=== PATIENT | female | born 1945 | race Two or more races ===

== ENCOUNTER 2018-10-03 09:07 | Day surgery (SDC) | payer MEDICARE, OTHER ==
[~2018-10-03] VITALS: Ht 157.5 cm; Wt 82.6 kg
[2018-10-03 09:30] VITALS: BP 135/66
[2018-10-03] MEDS ORDERED: ANCEF 1 GM/50 ML D5W IV ONE ×2 (10:00)
--- NOTE | 2018-10-03 10:30 | NUR ---
IV STARTED LT. WRIST #22 ANGIO
--- NOTE | 2018-10-03 10:50 | NUR ---
LEFT FOR OR VIA BED.DTR. ACCOMPANYING PT.SURGERY MADE AWARE PT. NEEDS ANCEF IV PRIOR TO OR.
[2018-10-03] MEDS ORDERED: ROCURONIUM BROMIDE 50 MG/5 ML ONE (12:10)
[2018-10-03] MEDS ORDERED: HYDROMORPHONE INJ 2 MG/ML DISP.SYRIN ONE (12:10)
[2018-10-03] MEDS ORDERED: DEXAMETHASONE SOD PHOSPHATE 4 MG/ML VIAL ONE (12:12)
[2018-10-03] MEDS ORDERED: EPINEPHRINE (1:1000) 1 MG/ML AMPUL ONE (12:15)
[2018-10-03 14:35] VITALS: BP 125/51
--- NOTE | 2018-10-03 14:35 | NUR ---
PT RETURNED TO RM.RT SHOULDER DRSG. DRY AND INTACT.RT. HAND WARM,DENIES NUMBNESS OR TINGLING.VS STABLE.NO DRAINAGE ON DRESSING.HEP LOCK INTACT.HOB ELEVATED.SLING IN PLACE.
--- NOTE | 2018-10-03 15:20 | NUR ---
DTR. AT BEDSIDE.NO CHANGE IN NEURO STATUS.DENIES PAIN DRESSING DRY AND INTACT.
[2018-10-03] MEDS ORDERED: LOSA100T31 PO (15:29)
[2018-10-03] MEDS ORDERED: CHLO25TA2 PO (15:29)
[2018-10-03] MEDS ORDERED: TRAM50TA2 PO (15:29)
[2018-10-03] MEDS ORDERED: AMLO5TAB9 PO (15:29)
[2018-10-03 16:00] VITALS: BP 157/66
[2018-10-03] MEDS ORDERED: HYDROCODONE/APAP 5/325MG 1 EACH TABLET PO PRN (16:30)
--- NOTE | 2018-10-03 19:00 | NUR ---
PT. TOLERATED REGULAR FOOD,VOIDED, UP IN RM. AMBULATING.DTR. AT BEDSIDE.DENIES PAIN.DRESSING DRY.GIVEN DC INSTRUCTIONS,HEP LOCK OUT.HAS PAIN MED RX AT HOME.AWARE OF WHAT TO REPORT TO MD AND TO KEEP MD APPT.BELONGINGS GATHERED UP AND TAKEN TO LOBBY VIA W/C.
== END 2018-10-03 16:00 | disposition home or self-care (01) ==
LOC: DS 09:07 → MED 09:13 → UNDOADMIN 09:13 → DS 16:00 → UNDODISIN 19:00
PROVIDERS: ATTEND Specialist
DX: M75.41 Impingement syndrome of right shoulder (principal); M65.812 Other synovitis and tenosynovitis, left shoulder; I10 Essential (primary) hypertension; K21.9 Gastro-esophageal reflux disease without esophagitis; M75.82 Other shoulder lesions, left shoulder; M24.112 Other articular cartilage disorders, left shoulder; E66.3 Overweight; Z79.899 Other long term (current) drug therapy; M75.101 Unspecified rotator cuff tear or rupture of right shoulder, not specified as traumatic
CPT/HCPCS: 23412; 29824; 29826; 87081; A4217; C1713; J0171; J0690; J1100; J1170; J1885; J2405; J2704; J2710; J3490 ×3; 88304-TC; 88311-TC; G0378